=== PATIENT | male | born 1995 | race Caucasian/White ===

== ENCOUNTER 2016-12-04 19:51 | Emergency (ER) | payer OTHER ==
[~2016-12-04] VITALS: Ht 167.6 cm; Wt 65.0 kg
[~2016-12-04 19:51] MED LIST: SERT50TA6
[2016-12-04 19:56] VITALS: Ht 167.6 cm; Wt 65.0 kg
[2016-12-04] MEDS ORDERED: KETOROLAC 15 MG INJ IM STA (20:25)
[2016-12-04] MEDS ORDERED: DIAZEPAM 5 MG TAB PO ONE (20:30)
--- NOTE | 2016-12-04 20:39 | ERA ---
ER Documentation Chief Complaint Date/Time DATE: 12/04/16 TIME: 20:31 Chief Complaint c/o Headpain x 2 days. States feels like theres a "head band" HPI This 21-year-old male patient presents to emergency department with complaint of headache since yesterday. Patient states that the headache goes across his forehead and feels like a tight pressure 6/10 on pain scale. Patient also reports a tingling numb-like sensation to his lower extremities. Patient reports that this is his third emergency room visit in the last 2 days. Past medical history of a anxiety disorder. Patient reports that can help think that something is wrong with him and is here for a second opinion. Patient is alert, neurovascularly intact, communicating well and per size during interview process. ROS All systems reviewed and are negative except as per history of present illness. Medications Home Meds Active Scripts Ibuprofen* (Motrin*) 400 Mg Tab, 400 MG PO Q6, #30 TAB Prov:RANJEET,MELODY 12/04/16 Reported Medications [none] Unknown Strength No Conflict Check 07/30/15 Sertraline Hcl* (Sertraline Hcl*) 50 Mg Tablet 07/30/12 [None] No Conflict Check 05/15/11 Allergies Allergies: Coded Allergies: No Known Drug Allergies (Verified Allergy, Unknown, 12/04/16) Uncoded Allergies: NONE (Allergy, Unknown, 12/04/16) PMhx/Soc History of Surgery: Yes (had appendectomy) Anesthesia Reaction: No Hx Neurological Disorder: No Hx Respiratory Disorders: No Hx Cardiac Disorders: Yes (svt) Hx Psychiatric Problems: Yes (anxiety) Hx Miscellaneous Medical Probl: No Hx Alcohol Use: No Hx Substance Use: No Hx Tobacco Use: No Smoking Status: Never smoker Physical Exam Vitals Vital Signs Date Time Temp Pulse Resp B/P Pulse Ox O2 Delivery O2 Flow Rate FiO2 12/04/16 21:39 98.9 82 18 128/72 99 Room Air 12/04/16 19:56 99.0 71 18 139/76 98 Vitals stable, triage notes reviewed Physical Exam Const: Well-nourished, well-hydrated, no acute distress Head: Atraumatic Eyes: Normal Conjunctiva, PERRLA, EOMI ENT: Normal External Ears, Nose and Mouth. Mucous membranes moist Neck: Resp: Respirations even and unlabored no respiratory distress Cardio: Abd: Skin: Back: Ext: Neuro: M/S: Alert and oriented Face: EOMI, face and pharynx with normal sensation and function Motor: Normal strength throughout Sensation: Normal sensation throughout Speech: Normal Cerebel: Normal coordination Normal gait Normal finger to nose DTR: 2+ and symmetric upper/lower extremities Psych: Normal Mood and Affect Results 24 hrs Current Medications Medications (Trade) Dose Ordered Sig/Maru Route PRN Reason Start Time Stop Time Status Last Admin Dose Admin Diazepam (Valium) 5 mg ONCE ONCE PO 12/04/16 20:30 12/04/16 20:31 DC 12/04/16 20:32 Ketorolac Tromethamine (Toradol) 15 mg ONCE STAT IM 12/04/16 20:25 12/04/16 20:27 DC 12/04/16 20:32 Ibuprofen (Motrin) 400 mg ONCE ONCE PO 12/04/16 22:00 12/04/16 22:00 DC Procedures/MDM This 21-year-old male patient presents to emergency department with headache and numbness tingling sensation to lower extremities. Patient denies any recent motor vehicle accident or injury, denies any back pain, or hematuria. Patient has no reports of change in vision, or head injury. Patient has past medical history of an anxiety disorder last symptomatic in high school. Patient is neurologically intact without any deficits upon examination, no suspicion for subarachnoid bleed, subdural hematoma, intracranial mass, TIA, CVA. Little suspicion for a systemic illness, meningitis is not suspected. I spent 15 minutes discussing anxiety disorders with patient the need for complete physical by primary care physician referral to psychologist or psychiatrist to talk about obsessive thoughts and feelings. Worries and anxiety. Patient is treated in emergency department today with 15 mg of Toradol IM, 5 mg of Valium p.o. Patient reports improvement of symptoms on reassessment. Will be discharged home with Motrin 400 mg every 6 hours as needed headache. I feel the patient is stable for discharge at this time. I have discussed results, examination findings, the treatment plan with the patient and family present prior to discharge. Indications for emergent reevaluation, side effects of medication were also discussed. All questions were answered. Patient verbalizes understanding and agrees with plan of care. Departure Diagnosis: Primary Impression: Headache Qualified Code: G44.219 - Episodic tension-type headache, not intractable Patient Instructions: Self-Care for Headaches, Treating Anxiety Disorders with Medication, Treating Anxiety Disorders with Therapy, Understanding Anxiety Disorders Referrals: [facility] Additional Instructions: Thank you for for coming to [facility] for your care today. Please ask your nurse or provider if you have questions about your care today and do not leave until all your questions have been answered. Please use any medications given as directed and follow-up with your doctor (or the doctor you were referred to) in the next 2-3 days. If you do not have a primary care doctor you may follow up at the [facility] (listed below). You may also use motrin and tylenol as needed for fever and/or pain unless instructed otherwise by your provider or nurse. Indications for more urgent follow-up have been discussed, but you may return to the Emergency Department at ANY time for any worrisome or worsening symptoms. If you have abdominal pain, please know that no test or exam you received is perfect and you should follow up within 8 hours for continued pain. If you had any imaging studies today, such as an X-Ray or CT Scan, these studies will be reviewed later by a radiologist. You will be called if there are important findings that were not identified today, so make sure the contact information you provided at registration is correct. If you received any narcotic pain control medicine today, such as Vicodin, Morphine or Dilaudid, your coordination and judgment may be affected for a number of hours. Please do not drive or operate heavy machinery, and you may want someone to assist you at home. If you were given a prescription for narcotic medication, be aware that it is very addictive- use sparingly and only if necessary. SHARLA POLLACK Dec 04, 2016 20:39
[2016-12-04] MEDS ORDERED: IBUP400T22 PO (21:36)
[2016-12-04 21:39] VITALS: BP 128/72; PULSE 82; RESP 18; TEMP 98.9
[2016-12-04] MEDS ORDERED: IBUPROFEN 200 MG TAB PO ONE (22:00)
== END 2016-12-04 21:40 | disposition home or self-care (01) ==
LOC: FTE 19:51
DX: G44.219 Episodic tension-type headache, not intractable (principal)
CPT/HCPCS: 96372; J1885; Z7502; Z7610

== ENCOUNTER 2017-07-27 15:55 | Emergency (ER) | END 2017-07-27 16:50 | disposition home or self-care (01) ==

== ENCOUNTER 2019-01-14 06:00 | Emergency (ER) | payer OTHER ==
[~2019-01-14] VITALS: Ht 170.2 cm; Wt 76.6 kg
[~2019-01-14 06:00] MED LIST changes: +CYCL10TA7 PO; +IBUP-1561 PO; +NAPR-985 PO
[2019-01-14 06:13] VITALS: BP 139/90; PULSE 75; RESP 16; Ht 170.2 cm; Wt 76.6 kg
== END 2019-01-14 07:56 | disposition home or self-care (01) ==
LOC: FTE 06:00
DX: M62.830 Muscle spasm of back (principal)
CPT/HCPCS: 81001; Z7502; 99283